=== PATIENT | male | born 1950 | race Hispanic/Latino ===

== ENCOUNTER 2022-04-22 08:21 | Day surgery (SDC) | payer OTHER ==
[2022-04-17 11:35] LABS: APPEARANCE,URINE CLEAR (CLEAR); BILIRUBIN,URINE NEGATIVE (NEGATIVE); COLOR,URINE YELLOW (YELLOW); GLUCOSE, URINE (UA) NEGATIVE (NEGATIVE); KETONES,URINE NEGATIVE (NEGATIVE); LEUKOCYTE ESTERASE ,URINE TRACE (NEGATIVE); NITRATE,URINE NEGATIVE (NEGATIVE); OCCULT BLOOD,URINE NEGATIVE (NEGATIVE); PH,URINE 7.5 (5.0-8.0); PROTEIN,URINE NEGATIVE (NEGATIVE); UROBILINOGEN,URINE 0.2 mg/dL (0.2-1.0)
[2022-04-17 11:37] LABS: BASOPHILS % (AUTO) 0.6 % (0.0-5.0); EOSINOPHILS % (AUTO) 1.3 % (0.0-8.0); HEMATOCRIT 43.2 % (42-54); LYMPHOCYTES % (AUTO) 22.4 % (21.0-51.0); MEAN CORPUSCULAR HEMOGLOBIN 31.9 pg (27.0-33.0); MEAN CORPUSCULAR HGB CONC 34.7 g/dL (32.0-36.0); MEAN CORPUSCULAR VOLUME 91.9 fL (79-99); MONOCYTES % (AUTO) 7.1 % (3.0-13.0); NEUTROPHILS % (AUTO) 68.3 % (40.0-77.0); PLATELET COUNT (AUTO) 236 K/uL (130-400); RED CELL DISTRIBUTION WIDTH 13.2 % (11.0-15.5); WHITE BLOOD COUNT (AUTO) 6.9 K/uL (4.8-10.8)
[2022-04-17 11:42] LABS: BACTERIA,URINE Rare /HPF (None Seen); MUCUS,URINE Few LPF (None Seen); RBC,URINE 0-1 /HPF (0-1); SQUAMOUS EPITHELIAL CELL,UR Rare /HPF (0-2)
[2022-04-17 11:45] LABS: CREATININE 0.8 mg/dL (0.5-1.5); POTASSIUM 4.3 mmol/L (3.5-5.1)
[2022-04-17 11:56] LABS: INR 0.93 (0.85-1.15); PROTHROMBIN TIME 10.2 SEC (9.6-11.6)
[2022-04-17 11:58] LABS: PARTIAL THROMBOPLASTIN TIME 27.3 SEC (26.3-35.5)
[2022-04-17 12:10] LABS: B-TYPE NATRIURETIC PEPTIDE 17 pg/mL (0-100)
[2022-04-21 10:52] VITALS: BP 156/82
[2022-04-22] VITALS (7 sets, daily range): BP systolic 118–132; BP diastolic 58–67
[~2022-04-22] VITALS: Ht 167.6 cm; Wt 77.4 kg
[~2022-04-22 08:21] MED LIST: AEC81 PO; CETI10TA57 PO; CLOP75TA32 PO; EZET10TA48 PO; FLUT15.845 NS; LISI2.5T13 PO; ROSU20TA31 PO; SERT-439 PO
[2022-04-22] MEDS ORDERED: 0.9%NACL 1000ML 1,000 ML IV ONE (09:40)
[2022-04-22] MEDS ORDERED: IOHEXOL 350 MG/ML 100ML INFUS..BTL IV ONE (15:45)
[2022-04-22] MEDS ORDERED: LIDOCAINE HCL 1% 20 ML VIAL ONE (15:45)
[2022-04-22] MEDS ORDERED: HEPARIN 10,000 UNIT/10ML (1,000 UNIT/ML) VIAL ONE (15:45)
[2022-04-22] MEDS ORDERED: MIDAZOLAM HCL 1 MG/ML 2ML VIAL ONE (15:46)
[2022-04-22] MEDS ORDERED: FENTANYL CITRATE PF 50 MCG/1 ML 2ML VIAL ONE (15:46)
[2022-04-22] MEDS: 0.9%NACL 1000ML 1,000 ML IV SCH ×2 (17:52→19:49)
== END 2022-04-22 20:21 | disposition home or self-care (01) ==
LOC: DAH 08:21
PROVIDERS: ATTEND Internal Medicine Cardiovascular Disease
DX: I25.119 Atherosclerotic heart disease of native coronary artery with unspecified angina pectoris (principal); I25.729 Atherosclerosis of autologous artery coronary artery bypass graft(s) with unspecified angina pectoris; I25.82 Chronic total occlusion of coronary artery; I11.0 Hypertensive heart disease with heart failure; I50.22 Chronic systolic (congestive) heart failure; E78.00 Pure hypercholesterolemia, unspecified; Z79.82 Long term (current) use of aspirin; Z79.01 Long term (current) use of anticoagulants; Z79.899 Other long term (current) drug therapy; Z82.49 Family history of ischemic heart disease and other diseases of the circulatory system
CPT/HCPCS: 80048; 83880; 85025; 85610; 85730; 81001; 36415; 71045; 93005; 93459; C1769; C1894 ×2; C1760; J3010; J7030; J2250; J1644; Q9967; A4215; A4222; A4221; A4663; A4216; A4606; Q9965 ×2; A4223 ×3; 99156; 99157

== ENCOUNTER → 2024-11-21 | Outpatient (CLI) | payer OTHER ==
[~2024-11-21] MED LIST changes: -ROSU20TA31 PO; +ROSU20TA98 PO
--- NOTE | 2024-11-21 14:12 | EKG ---
[facility] Test Date: 2024-11-21 Test Time: 13:58:51 Pat Name: VANGIE CASH Department: [facility] Room: Gender: M [employer] Planter: [id number] : 1950 Requested By: YUNIEL BRICENO Order Number: [id number] Reading MD: Amos Daugherty Measurements Intervals [place] Rate: 56 P: 35 IN: 181 QRS: -13 QRSD: 107 T: 92 QT: 478 QTc: 463 Interpretive Statements Sinus rhythm Compared to ECG 04/17/2022 10:15:11 Myocardial infarct finding no longer present Prolonged QT interval no longer present Electronically Signed On 11-21-2024 17:00:36 CDT by Amos Daugherty Please click the below link to view image of tracing.
--- NOTE | 2024-11-21 16:42 | HMCSR ---
APPROVED REPORT EXAM: Two-dimensional and M-mode echocardiogram with Doppler and color Doppler. INDICATION ICD: Atherosclerotic heart disease of [place] coronary artery without angina pectoris I25.10 2D Dimensions RVDd3.8 cmLVEF(%)50.0 (>50%)LVEF(%, simp.)51 % IVSd0.7 (0.7-1.1cm)FS(%)26 %LA ESV INDEX (BP)30.04 mL/m2 LVDd5.8 (3.8-5.6cm)LA (2D)4.9 (1.6-4.0cm) PWd0.7 (0.7-1.1cm)Ao Root(2D)3.3 (2.0-3.7cm) IVSs1.2 cmLVOT diam2.0 (1.8-2.4cm) LVDs4.3 (2.5-4.0cm)IVC diam1.4 cm PWs0.8 cm M-Mode Dimensions EPSS1.1 cm LA (MM)5.2 (1.6-4.0cm) Ao Root(MM)2.9 (2.0-3.7cm) Aortic Valve AoV Vmax1.2 m/Jose Peak GR5.4 mmHgLVOT Vmax0.9 m/s AoV VTI0.3 mAo Mean GR3.1 mmHgLVOT VTI0.24 m MC (VMAX)2.7 cm2AVA (VTI) 2.7 cm2 Mitral Valve MV E Vmax58.9 cm/sDECEL Koaq186 ms MV A Vmax65.4 cm/sP 1/2 T106 ms E/A ratio0.9MVA (PHT)2.1 cm2 TDI E/E' Vcvfxv50.8E/E' Lateral5.9 Medial E' Peak V5.00 cm/sLateral E' Peak V10.00 cm/s Pulmonary Valve PV Vmax1.1 m/s Tricuspid Valve TR Vmax2.2 m/sRAP (EST) 3 jaDyIHMV16.6 mmHg TR Peak GR18.6 mmHg Left Ventricle The left ventricle is normal size. There is normal LV segmental wall motion. There is normal left rosita tricular wall thickness. LVEF is 55-60%. The left ventricular diastolic function is normal. Right Ventricle The right ventricle is normal size. Right ventricular systolic function is borderline reduced. Atria The left atrium size is normal. The right atrium size is normal. Aortic Valve The aortic valve is normal in structure. No aortic regurgitation is present. There is no aortic valvu lar stenosis. Mitral Valve The mitral valve is normal in structure. There is mild mitral valve regurgitation noted. There is no mitral valve stenosis. Tricuspid Valve The tricuspid valve is normal in structure. There is trace of tricuspid valve regurgitation noted. Pulmonic Valve The pulmonary valve is normal in structure. There is mild pulmonic valvular regurgitation. Great Vessels The aortic root is normal in size. The IVC is normal in size and collapses >50% with inspiration. Pericardium There is no pericardial effusion. Other Information Quality : Adequate Conclusion LVEF is 55-60%. There is mild mitral valve regurgitation noted. There is trace of tricuspid valve regurgitation noted.
== END | disposition home or self-care (01) ==
LOC: RAH 12:50
PROVIDERS: ATTEND Chiropractor
DX: I08.8 Other rheumatic multiple valve diseases (principal); I25.10 Atherosclerotic heart disease of native coronary artery without angina pectoris; I48.91 Unspecified atrial fibrillation
CPT/HCPCS: 93005; 93306